=== PATIENT | male | born 1975 ===

== ENCOUNTER 2025-08-03 06:00 | Day surgery (SDC) | payer OTHER ==
[2025-07-27 13:08] VITALS: BP 133/76
[~2025-08-03] VITALS: Ht 167.6 cm; Wt 70.3 kg
[~2025-08-03 06:00] MED LIST: CEFTRIAXONE SODIUM 2,000 MG VIAL ONE; METRONIDAZOLE/SODIUM CHLORIDE 500 MG/100 ML PIGGYBACK IV ONE
[2025-08-03] MEDS ORDERED: POVIDONE-IODINE 118 ML BOTT TOP ONE (07:03)
[2025-08-03] MEDS ORDERED: HEMOSTATIC MATRIX 1 KIT KIT TOP ONE (08:17)
[2025-08-03] MEDS ORDERED: DIBUCAINE 30 GM TUBE ONE (08:17)
[2025-08-03] MEDS ORDERED: OXYCODONE HCL5 MG PO (09:44)
[2025-08-03] MEDS ORDERED: TAMSULOSIN HCL 0.4 MG CAP PO ONE ×2 (09:45→10:21)
[2025-08-03] MEDS ORDERED: LIDOCAINE HCL 1%/EPINEPHRINE 20ML VIAL IJ ONE (10:30)
[2025-08-03] MEDS ORDERED: BUPIVACAINE HCL 30 ML VIAL IJ ONE (10:30)
== END 2025-08-03 11:15 | disposition home or self-care (01) ==
LOC: CIR.AMB 06:00
PROVIDERS: ATTEND Surgery
DX: K64.2 Third degree hemorrhoids (principal); K64.4 Residual hemorrhoidal skin tags; K62.5 Hemorrhage of anus and rectum

== ENCOUNTER 2025-08-12 12:39 | Emergency (ER) | payer OTHER ==
[~2025-08-12] VITALS: Ht 167.6 cm; Wt 70.3 kg
[~2025-08-12 12:39] MED LIST changes: -CEFTRIAXONE SODIUM 2,000 MG VIAL ONE; -METRONIDAZOLE/SODIUM CHLORIDE 500 MG/100 ML PIGGYBACK IV ONE; +OXYCODONE HCL5 MG PO
[2025-08-12] MEDS ORDERED: CLONAZEPAM1 M1 (14:01)
[2025-08-12] MEDS ORDERED: LOREEV XR1 MG (14:02)
[2025-08-12] MEDS ORDERED: METHYLPREDNISOLONE SOD SUCC 125 MG VIAL IV ONE (15:30)
[2025-08-12] MEDS ORDERED: 0.9 % SODIUM CHLORIDE 1,000 ML IV ONE (15:30)
[2025-08-12] MEDS ORDERED: FAMOTIDINE/PF 20 MG/2 ML VIAL IV ONE (15:30)
[2025-08-12] MEDS ORDERED: KETOROLAC TROMETHAMINE 30 MG VIAL IV ONE (15:30)
[2025-08-12 16:18] LABS: BASO % 0.5 % (0.1-1.2); EOS # 0.07 (0.04-0.54); EOS % 0.7 % (0.7-7.0); LYMPH # 1.63 (1.18-3.74); LYMPH % 16.6 % (19.3-53.1); MEAN PLATELET VOLUME 8.70 fl (9.4-12.4); MONO # 0.89 (0.24-0.82); MONO % 9.0 % (4.7-12.5); NEUT # 7.19 (1.56-6.13); NEUT % 73.1 % (34.0-71.1); RED CELL DISTRIBUTION WIDTH 11.6 % (11.6-14.4)
[2025-08-12 16:43] LABS: INR 1.01
[2025-08-12 16:48] LABS: ALT/SGPT 39.0 U/L (12-78); AST/SGOT 29.0 U/L (15-37); BILIRUBIN TOTAL 0.54 mg/dL (0.3-1.2); BUN CREA RATIO 15.0 (7.0-25.0); CREATININE SERUM 0.84 mg/dL (0.70-1.30); GFR 96.72; GLOBULINA 4.1 G/DL (2.4-3.5); GLUCOSE FASTING 100.0 mg/dL (65-100); OSMOLALITY SERUM 280.0 MOSM/KG (275-295)
[2025-08-12 17:35] LABS: URINE APPEARANCE Clear; URINE BILIRRUBIN Negative (NEGATIVE); URINE BLOOD Negative; URINE COLOR Yellow; URINE GLUCOSE Negative (NEGATIVE); URINE KETONE Trace (NEGATIVE); URINE LEUKOCYTE Negative; URINE NITRATE Negative; URINE PROTEIN Negative (NEGATIVE); URINE UROBILINOGEN 1.0 E.U./dl
[2025-08-12 17:40] LABS: URINE BACTERIA 7.1 uL (0.0-1933)
[2025-08-12 17:45] LABS: URINE EPITHELIAL CELLS 0.7 uL (0.0-38.8); URINE RBC 1.6 uL (0.0-20.8); URINE WBC 1.2 uL (0.0-23.2)
[2025-08-12 17:46] LABS: TYPE CELLS SQUAMOUS; URINE CAST 0.00 uL (0.0-1.40)
[2025-08-12] MEDS ORDERED: DICLOFENAC SODI50 MG PO (20:54)
[2025-08-12] MEDS ORDERED: PEPCID AC20 MG PO (20:54)
== END 2025-08-12 21:41 ==
LOC: ER 12:39
PROVIDERS: General Practice
DX: K62.89 Other specified diseases of anus and rectum (principal); K57.32 Diverticulitis of large intestine without perforation or abscess without bleeding; K64.4 Residual hemorrhoidal skin tags